=== PATIENT | male | born 1995 | race Caucasian/White ===

== ENCOUNTER 2019-09-07 21:44 | Emergency (ER) | payer MEDICAID ==
[~2019-09-07] VITALS: Ht 170.2 cm; Wt 88.9 kg
[2019-09-07 21:45] VITALS: BP 152/90
--- NOTE | 2019-09-07 21:48 | NUR ---
TO LOBBY A/W BED AMBULATORY
--- NOTE | 2019-09-07 22:41 | NUR ---
PT TAKEN TO BED 1
--- NOTE | 2019-09-07 22:48 | NUR ---
24 Y/O M PRESENTS TO ER C/O LEFT LOWER TOOTH PAIN X 2 DAYS. PT SEEN DENTIST ON 09/05 AND NEEDS TO SCHEDULE FOR TOOTH TO GET PULLED. PT HAS BEEN TAKING MOTRIN 400MG, WITHOUT ANY RELIEF. PAIN LEVEL 7/10, PRESSURE AND SHOOTING PAIN. NKA. NO MED HX. SAFETY MEASURES IN PLACE. WAITING FOR ERMD TO EVALUATE PT.
[2019-09-07 23:29] VITALS: BP 152/90
--- NOTE | 2019-09-07 23:29 | NUR ---
Patient discharged with v/s stable. Written and verbal after care instructions given and explained. Patient alert, oriented and verbalized understanding of instructions. Ambulatory with steady gait. All questions addressed prior to discharge. ID band removed. Patient advised to follow up with PMD. Rx of NORCO, NAPROSYN, AND AMOXICILLIN WAS given. Patient educated on indication of medication including possible reaction and side effects. Opportunity to ask questions provided and answered.
== END 2019-09-07 23:29 | disposition home or self-care (01) ==
LOC: MED 21:44
DX: K08.89 Other specified disorders of teeth and supporting structures (principal)
CPT/HCPCS: 99283